=== PATIENT | male | born 1975 | race Caucasian/White ===

== ENCOUNTER → 2021-04-04 | Outpatient (CLI) | payer OTHER ==
[2021-04-04 16:14] LABS: ALBUMIN 3.8 gm/dl (3.1-4.5); BUN 14 mg/dl (7-24); CHLORIDE 108 mmol/L (98-107); POTASSIUM 4.2 mmol/L (3.5-5.1); SODIUM 139 mmol/L (136-145)
[2021-04-04 16:19] LABS: ALKALINE PHOSPHATASE 66 U/L (45-117); CREATININE 0.98 mg/dL (0.70-1.30); SGOT/AST 21 IU/L (3-35); SGPT/ALT 40 U/L (12-78); TOTAL PROTEIN 7.7 gm/dL (6.4-8.2)
== END | disposition home or self-care (01) ==
LOC: LAB 15:21
PROVIDERS: ATTEND Orthopaedic Surgery
DX: Z79.1 Long term (current) use of non-steroidal anti-inflammatories (NSAID) (principal)

== ENCOUNTER 2024-10-30 09:35 | Emergency (ER) | payer SELFPAY ==
[~2024-10-30] VITALS: Ht 185.4 cm; Wt 113.4 kg
[2024-10-30] MEDS ORDERED: CEPHALEXIN 500 MG CAP PO ONE (09:50)
[2024-10-30] MEDS ORDERED: VIBRAMYCIN100 MG PO (09:52)
[2024-10-30] MEDS ORDERED: CEPHALEXIN500 M1 PO (09:52)
== END 2024-10-30 09:49 | disposition home or self-care (01) ==
LOC: ED 09:35
DX: L03.115 Cellulitis of right lower limb (principal); R21 Rash and other nonspecific skin eruption